=== PATIENT | male | born 1965 | race Caucasian/White ===

== ENCOUNTER 2019-03-23 19:51 | Emergency (ER) | payer SELFPAY ==
--- NOTE | 2019-03-23 20:13 | ED.PDOC ---
History of Present Illness - General Chief Complaint: Respiratory Problem Stated Complaint: short of breath Time Seen by Provider: 03/23/19 20:03 Source: patient - History of Present Illness Initial Comments: HE HAS BEEN SOB FOR ONE MONTH AND HAS BEEN USING HIS FATHERS NEBULIZER AND HIS ALBUTEROL. HE TAKES NO PRESCRIPTION MEDICATION, OTHERWISE. HE WAS BROUGHT BY AMBULANCE AND EN ROUTE GIVEN SOLU MEDROL, 125 MG IVP AND AN XOPENEX TREATMENT. HE DENIES ANY FEVER. Severity: moderate Activities at Onset: rest Possible Cause: no prior episodes Improving Factors: nothing Worsening Factors: nothing Associated Symptoms: cough, wheezing Respiratory Risk Factors: no cause identified Allergies/Adverse Reactions: Allergies NO KNOWN ALLERGY Allergy (Verified 03/23/19 20:10) Home Medications: Ambulatory Orders Ipratropium/Albuterol [Duoneb] 3 ml INH Q6HRS #40 vial 03/23/19 Methylprednisolone [Medrol Dose Kush] 4 mg PO DAILY 6 Days #21 tab 03/23/19 Review of Systems - Review of Systems Constitutional: States: no symptoms reported EENTM: States: no symptoms reported Respiratory: States: cough, short of breath, wheezing Cardiology: States: no symptoms reported Gastrointestinal/Abdominal: States: no symptoms reported Genitourinary: States: no symptoms reported Skin: States: no symptoms reported Neurological: States: no symptoms reported Endocrine: States: no symptoms reported Hematologic/Lymphatic: States: no symptoms reported Past Medical History (General) - Patient Medical History Hx Seizures: No Hx Stroke: No Hx Dementia: No - Vaccination History Hx Influenza Vaccination: No Hx Pneumococcal Vaccination: No Immunizations Up to Date: No Family Medical History - Family History Father Family History: Unknown Physical Exam - Physical Exam General Appearance: Alert, Anxious, Well Developed, Well Groomed, Well Hydrated, Well Nourished, Other - MODERATE RESPIRATORY DISTRESS Eyes, Ears, Nose, Throat Exam: PERRL/EOMI Neck: non-tender Respiratory: wheezing, expiration, inspiration Cardiovascular/Chest: tachycardia Peripheral Pulses: radial,right: 2+, radial,left: 2+ Gastrointestinal/Abdominal: normal bowel sounds, non tender, soft, no organomegaly, no pulsatile mass Rectal Exam: deferred Extremity: normal range of motion, non-tender Neurologic: no motor/sensory deficits, alert, oriented x 3 Skin Exam: normal color Lymphatic: no adenopathy Progress - Progress Progress: 03/23/19 20:58 THE CXR IS NORMAL. REASSESSED: LUNGS ARE CLEAR AFTER DUONEB. THE CBC HAS A HB OF 19.6 AND AN EOSINOPHILIA OF 18%. MOST LIKELY THIS PROBLEM IS ALLERGIC IN ORIGIN. THE ELEVATED HB IS OF CONCERN FOR POLYCYTEMIA VERA. HE WILL NEED TO FIND HOMSELF A PCP. - Results/Orders Results/Orders: 03/23/19 19: B-TYPE NATRIURETIC PEPTIDE/BNP Stat COMPLETE METABOLIC PROFILE Stat 03/23/19 20:15 EKG STAT Laboratory Results WBC 11.3 K/mm3 (4.8-10.8) H 03/23/19 19:30 RBC 5.61 M/mm3 (4.70-6.10) 03/23/19 19:30 Hgb 19.4 gm/dL (14.0-18.0) H 03/23/19 19:30 Hct 57.8 % (42.0-52.0) H 03/23/19 19:30 MCV 103.0 fl (80.0-94.0) H 03/23/19 19:30 MCH 34.6 pg (27.0-31.0) H 03/23/19 19:30 MCHC 33.6 g/dL (33.0-37.0) 03/23/19 19:30 RDW 13.6 % (11.5-14.5) 03/23/19 19:30 Plt Count 231 K/mm3 (130-400) 03/23/19 19:30 MPV 8.2 fl (7.40-10.4) 03/23/19 19:30 Absolute Neuts (auto) 6.50 K/uL (1.8-6.8) 03/23/19 19:30 Absolute Lymphs (auto) 1.70 K/uL (1.0-3.4) 03/23/19 19:30 Absolute Monos (auto) 0.80 K/uL (0.2-0.8) 03/23/19 19:30 Absolute Eos (auto) 2.10 K/uL (0.0-0.4) H 03/23/19 19:30 Absolute Basos (auto) 0.20 K/uL (0.0-0.1) H 03/23/19 19:30 Neutrophils % 57.6 % (42.0-78.0) 03/23/19 19:30 Lymphocytes % 14.9 % (20.0-50.0) L 03/23/19: Monocytes % 7.0 % (2.0-9.0) 03/23/19 19: Eosinophils % 18.7 % (1.0-5.0) H 03/23/19: Basophils % 1.8 % (0.0-2.0) 03/23/19:30 Sodium 138 mmol/L (135-145) 03/23/19 19: Potassium 3.4 mmol/L (3.6-5.0) L 03/23/19: Chloride 97 mmol/L (101-111) L 03/23/19: Carbon Dioxide 30 mmol/L (21-31) 03/23/19: Anion Gap 14.4 (12-18) 03/23/19 19:30 BUN 12 mg/dL (7-18) 03/23/19: Creatinine 0.92 mg/dL (0.6-1.3) 03/23/19: BUN/Creatinine Ratio 13.0 (10-20) 03/23/19: Random Glucose 111 mg/dL (70-105) H 03/23/19: Serum Osmolality 276.1 mOsm/L (275-295) 03/23/19: Calcium 9.6 mg/dL (8.4-10.2) 03/23/19: Total Bilirubin 1.8 mg/dL (0.2-1.0) H 03/23/19:30 AST 40 IU/L (10-42) 03/23/19:30 ALT 33 IU/L (10-60) 03/23/19 19:30 Alkaline Phosphatase 91 IU/L (42-121) 03/23/19: Serum Total Protein 8.6 gm/dL (6.4-8.2) H 03/23/19 19:30 Albumin 4.7 g/dl (3.2-5.5) 03/23/19 19:30 Globulin 3.9 gm/dL (2.3-3.5) H 03/23/19 19: Albumin/Globulin Ratio 1.2 (1.1-1.9) 03/23/19 19:30 Departure - Departure Clinical Impression: Acquired polycythemia Acute asthma exacerbation Qualifiers: Asthma severity: moderate Asthma persistence: unspecified Qualified Code(s): J45.901 - Unspecified asthma with (acute) exacerbation Time of Disposition: 21:15 Disposition: Discharge to Home or Self Care Condition: Fair Departure Forms: ED Discharge - Pt. Copy, Patient Portal Self Enrollment Instructions: DI for Asthma -- Adult Prescriptions: Ipratropium/Albuterol [Duoneb] 3 ml INH Q6HRS #40 vial Methylprednisolone [Medrol Dose Kush] 4 mg PO DAILY 6 Days #21 tab Home Medications: Ambulatory Orders Ipratropium/Albuterol [Duoneb] 3 ml INH Q6HRS #40 vial 03/23/19 Methylprednisolone [Medrol Dose Kush] 4 mg PO DAILY 6 Days #21 tab 03/23/19 Comments: you need to get a family doctor for follow up-call the clinic for appointment.
[2019-03-23] MEDS: IPRATROPIUM/ALBUTEROL 3 ML VIAL NEB ONE (20:18)
--- NOTE | 2019-03-23 20:26 | RAD ---
EXAM: XR Chest, 1 View CLINICAL HISTORY: 53 years old and is Male; sob TECHNIQUE: Frontal view of the chest. COMPARISON: No relevant prior studies available. FINDINGS: Limitations: None. Lungs: There is mild symmetrical hyperinflation. No consolidation. Pleural space: Unremarkable. No pneumothorax. Heart: Unremarkable. No cardiomegaly. Mediastinum: Unremarkable. Bones/joints: Unremarkable. IMPRESSION: No acute findings. Electronically signed by: Kitty Bills MD 03/23/2019 8:24 PM CDT
[2019-03-23 22:06] VITALS: O2SAT 95
[2019-03-23 22:29] VITALS: BP 148/92; TEMP 97.1
== END 2019-03-23 22:29 | disposition home or self-care (01) ==
LOC: ER 19:51
DX: J45.901 Unspecified asthma with (acute) exacerbation (principal); D75.1 Secondary polycythemia; R00.0 Tachycardia, unspecified
CPT/HCPCS: 36415; 71045; 80053; 83880; 85025; 93005; 94640; J7620